=== PATIENT | male | born 1975 | race Caucasian/White ===

== ENCOUNTER 2023-10-22 07:03 | Day surgery (SDC) | payer OTHER ==
[~2023-10-22] VITALS: Ht 182.9 cm; Wt 90.7 kg
[2023-10-22] MEDS ORDERED: fentaNYL citrate 0.05 MG/ML VIAL ONE (07:24)
[2023-10-22] MEDS: fentaNYL citrate 0.05 MG/ML VIAL IVP ONE (09:02)
[2023-10-22] MEDS: LIDOCAINE 2% 100 MG/5 ML UJET TP ONE (09:13)
== END 2023-10-22 10:25 | disposition home or self-care (01) ==
LOC: MMU 07:03 → MOR 07:03
PROVIDERS: ATTEND Internal Medicine Gastroenterology
DX: Z12.11 Encounter for screening for malignant neoplasm of colon (principal); K64.8 Other hemorrhoids; E78.00 Pure hypercholesterolemia, unspecified; F41.9 Anxiety disorder, unspecified; M19.90 Unspecified osteoarthritis, unspecified site; E11.40 Type 2 diabetes mellitus with diabetic neuropathy, unspecified; Z79.899 Other long term (current) drug therapy; Z98.890 Other specified postprocedural states
CPT/HCPCS: 45378; 82948; J3010

== ENCOUNTER 2024-01-14 06:15 | Day surgery (SDC) | payer OTHER ==
[~2024-01-14] VITALS: Ht 182.9 cm; Wt 90.7 kg
[2024-01-14] MEDS ORDERED: fentaNYL citrate 0.05 MG/ML VIAL ONE (07:33)
[2024-01-14] MEDS: fentaNYL citrate 0.05 MG/ML VIAL IVP ONE (07:49)
[2024-01-14] MEDS: LIDOCAINE 2% 100 MG/5 ML UJET TP ONE (07:56)
== END 2024-01-14 09:00 | disposition home or self-care (01) ==
LOC: MOR 06:15 → MMU 06:34 → MOR 09:00
PROVIDERS: ATTEND Internal Medicine Gastroenterology
DX: Z12.11 Encounter for screening for malignant neoplasm of colon (principal); E11.9 Type 2 diabetes mellitus without complications; E78.00 Pure hypercholesterolemia, unspecified; Z79.899 Other long term (current) drug therapy
CPT/HCPCS: 45378; 82948; J3010